=== PATIENT | male | born 1955 | race Caucasian/White ===

== ENCOUNTER 2018-10-06 10:02 | Day surgery (SDC) | payer OTHER, SELFPAY ==
[2018-10-06 10:21] VITALS: BP 128/77; PULSE 66; RESP 16; TEMP 36.6; O2SAT 66; BMI 23.6
[2018-10-06] MEDS: SODIUM CHLORIDE 0.9% 1,000 ML 42 ML IV (10:34)
--- NOTE | 2018-10-06 11:13 | PM.HP.1 ---
History of Present Illness Date Patient Seen: 10/06/18 Time Patient Seen: 11:13 Chief complaint: colonoscopy [id number] Narrative: History of colon polyps Patient History Medical History Hypercholesterolemia (Acute) Monoclonal gammopathy (Acute) Osteoporosis (Acute) Family & Social History Social History: household members family Meds Home Medications Medication Instructions Recorded Confirmed Type alendronate 70 mg PO QWEEK 10/06/18 10/06/18 History amlodipine-olmesartan [Tano] 1 tab PO DAILY 10/06/18 10/06/18 History atorvastatin 40 mg PO DAILY 10/06/18 10/06/18 History potassium chloride 20 meq PO DAILY 10/06/18 10/06/18 History Allergies Allergy/AdvReac Type Severity Reaction Status Date / Time No Known Drug Allergies Allergy Verified 10/06/18 10:15 Exam Vital Signs (past 8 hours): - 10/06/18 10:21 Temperature 97.8 F Pulse Rate 66 Respiratory Rate 16 Blood Pressure 128/77 Pulse Oximetry 66 L Oxygen Delivery Method Room Air Narrative Exam Narrative: Oropharynx free of lesions Chest clear to auscultation percussion Cardiac exam reveals no S3 or murmur Assessment & Plan Plan: Assessment/Plan Narrative: History of adenomatous colon polyps need for follow-up colonoscopy. Risks, benefits, alternatives have been explained.
--- NOTE | 2018-10-06 11:16 | P.HP_ITS ---
History of Present Illness Date Patient Seen: 10/06/18 Time Patient Seen: 11:13 Chief complaint: colonoscopy [id number] Narrative: History of colon polyps Patient History Medical History Hypercholesterolemia (Acute) Monoclonal gammopathy (Acute) Osteoporosis (Acute) Family & Social History Social History: household members family Meds Home Medications Medication Instructions Recorded Confirmed Type alendronate 70 mg PO QWEEK 10/06/18 10/06/18 History amlodipine-olmesartan [Tano] 1 tab PO DAILY 10/06/18 10/06/18 History atorvastatin 40 mg PO DAILY 10/06/18 10/06/18 History potassium chloride 20 meq PO DAILY 10/06/18 10/06/18 History Allergies Allergy/AdvReac Type Severity Reaction Status Date / Time No Known Drug Allergies Allergy Verified 10/06/18 10:15 Exam Vital Signs (past 8 hours): - 10/06/18 10:21 Temperature 97.8 F Pulse Rate 66 Respiratory Rate 16 Blood Pressure 128/77 Pulse Oximetry 66 L Oxygen Delivery Method Room Air Narrative Exam Narrative: Oropharynx free of lesions Chest clear to auscultation percussion Cardiac exam reveals no S3 or murmur Assessment & Plan Plan: Assessment/Plan Narrative: History of adenomatous colon polyps need for follow-up colonoscopy. Risks, benefits, alternatives have been explained.
--- NOTE | 2018-10-06 11:16 | PM.OP.ENDO ---
Operative Date/Time/Diagnoses Date of procedure: 10/06/18 Time of procedure: 11:16 Pre-op diagnosis: See indications and findings Post-op diagnosis: same Procedure & Clinicians Study performed: Colonoscopy Indications: History of colon polyps Surgeon: Tae Quiroz Procedure Notes Procedure in detail: After informed consent was obtained the patient was placed in left lateral decubitus position. The video colonoscope was introduced the rectum and slowly advanced to the cecum. Preparation was good. On slow withdrawal mucosa was carefully examined. The scope was removed. The patient tolerated the procedure well. Blood loss none Complications none Sedation Total sedation time 24 min Versed 6 mg fentanyl 100 mcg IV titration Findings 1. Normal colonoscopy to cecum other than scattered diverticula in the sigmoid colon With history of colon polyps he should have follow-up colonoscopy in 5 years.
[2018-10-06] MEDS: MIDAZOLAM 5 MG/5 ML VIAL IV (11:27)
[2018-10-06] MEDS: fentaNYL 250 MCG/5 ML INJ IV (11:28)
[2018-10-06 11:35] VITALS: BP 98/68; PULSE 65; RESP 18; TEMP 37.2; O2SAT 97
[2018-10-06 11:40] VITALS: BP 110/67; PULSE 72; RESP 12; TEMP 36.9; O2SAT 96
[2018-10-06 11:45] VITALS: BP 122/78; PULSE 68; RESP 12; TEMP 36.8; O2SAT 98
[2018-10-06 12:00] VITALS: BP 123/81; PULSE 67; RESP 16; TEMP 36.4; O2SAT 97
== END 2018-10-06 12:09 | disposition home or self-care (01) ==
PROVIDERS: Visit Provider Internal Medicine Gastroenterology
PROC: 0DJD8ZZ Inspection of Lower Intestinal Tract, Via Natural or Artificial Opening Endoscopic (ICD-10-PCS; CPT 45378; principal; 2018-10-06 11:00)
DX: Z86.010 Personal history of colon polyps (principal); K57.30 Diverticulosis of large intestine without perforation or abscess without bleeding
CPT/HCPCS: 45378; J2250; J3010

== ENCOUNTER → 2023-11-08 11:22 | Outpatient (CLI) | payer MEDICARE, OTHER, SELFPAY ==
--- NOTE | 2023-11-08 11:25 | DI.RAD.S_ITS ---
PROCEDURE: XR CLAVICLE RT INDICATIONS: Right clavicle pain TECHNIQUE: 2 views of the clavicle were acquired. COMPARISON: None. FINDINGS: Bones: No fractures or dislocations. No suspicious bony lesions. Age-appropriate bony degenerative changes are seen. Soft tissues: There is a mild degree of right shoulder calcific tendinopathy. IMPRESSION: No acute bony abnormality. Dictated by: Abran Wallis M.D. on 11/08/2023 at 10:55 Approved by: Abran Wallis M.D. on 11/08/2023 at 10:56
== END ==
PROVIDERS: Referring Provider Registered Nurse; Visit Provider Registered Nurse
DX: M89.8X1 Other specified disorders of bone, shoulder (principal)
CPT/HCPCS: 73000

== ENCOUNTER 2024-03-23 08:29 | Day surgery (SDC) | payer MEDICARE, OTHER, SELFPAY ==
[2024-03-23 08:58] VITALS: BP 125/78; PULSE 74; RESP 16; TEMP 36.6; O2SAT 96
--- NOTE | 2024-03-23 09:03 | P.HP_ITS ---
History of Present Illness History of Present Illness Date Patient Seen: 03/23/24 Chief complaint: SDC Narrative: History of adenomatous colon polyps [facility] Medical History (Updated 03/23/24 @ 08:58 by Clarisa Patterson RN) Melanoma Encounter for colonoscopy due to history of colonic polyp Inguinal hernia GERD (gastroesophageal reflux disease) Hypertension Monoclonal gammopathy Osteoporosis Hypercholesterolemia Social History household members: family Smoking Status: Never smoker Meds Home Medications and Allergies Home Medications Medication Instructions Recorded Confirmed Type atorvastatin 40 mg tablet 40 mg PO DAILY 10/06/18 03/23/24 History potassium chloride 20 mEq 20 meq PO DAILY 10/06/18 03/23/24 History tablet,extended release amlodipine 10 mg tablet 10 mg PO DAILY 11/08/23 03/23/24 History brimonidine 0.2 % eye drops drp EYE-BOTH 11/08/23 11/08/23 History lisinopril 40 mg tablet 40 mg PO DAILY 11/08/23 03/23/24 History Allergies Allergy/AdvReac Type Severity Reaction Status Date / Time No Known Drug Allergies Allergy Verified 11/08/23 10:55 Exam Narrative Exam Narrative: Oropharynx free of lesions Chest clear to auscultation percussion Cardiac exam reveals no S3 or murmur Assessment & Plan Assessment & Plan narrative: History of adenomatous colon polyps need for follow-up colonoscopy. Risks, benefits, alternatives have been explained.
--- NOTE | 2024-03-23 09:04 | PM.OP.COLON ---
Operative Date/Time/Diagnoses Date of procedure: 03/23/24 Pre-op diagnosis: See indication and findings Procedure & Clinicians Study performed: Colonoscopy Indications: History of polyps Surgeon: Tae Quiroz Procedure Notes Procedure in detail: After informed consent was obtained the patient was placed in left lateral decubitus position. The video colonoscope was introduced the rectum slowly advanced cecum. On slow withdrawal mucosa was carefully examined. The scope was removed. The patient tolerated procedure well. Blood loss none Complications none Sedation mac Findings 1. Normal colonoscopy to cecum Junction of follow-up colonoscopy in 5 years.
[2024-03-23] MEDS: LACTATED RINGERS 1,000 ML 42 ML IV (09:08)
[2024-03-23 10:30] VITALS: BP 104/66; PULSE 77; RESP 15; TEMP 37.2; O2SAT 98
[2024-03-23 10:35] VITALS: BP 114/66; PULSE 82; RESP 20; TEMP 37.2; O2SAT 98
[2024-03-23 10:41] VITALS: BP 121/74; PULSE 74; RESP 20; TEMP 37.2; O2SAT 96
== END 2024-03-23 10:51 | disposition home or self-care (01) ==
PROVIDERS: Referring Provider Internal Medicine Gastroenterology; Visit Provider Internal Medicine Gastroenterology
PROC: 0DJD8ZZ Inspection of Lower Intestinal Tract, Via Natural or Artificial Opening Endoscopic (ICD-10-PCS; CPT 45378; principal; 2024-03-23 09:30)
DX: Z12.11 Encounter for screening for malignant neoplasm of colon (principal); Z86.010 Personal history of colon polyps
CPT/HCPCS: G0105; J2704